=== PATIENT | male | born 1950 | race Caucasian/White ===

== ENCOUNTER → 2017-12-05 | Outpatient (CLI) | payer OTHER | LOC: RAD 12:54 | DX: F17.200 Nicotine dependence, unspecified, uncomplicated (principal); K57.32 Diverticulitis of large intestine without perforation or abscess without bleeding ==

== ENCOUNTER → 2019-04-04 | Outpatient (CLI) | payer OTHER | LOC: CAT 11:04 | DX: Z13.6 Encounter for screening for cardiovascular disorders (principal); E78.00 Pure hypercholesterolemia, unspecified; I25.10 Atherosclerotic heart disease of native coronary artery without angina pectoris ==

== ENCOUNTER → 2020-08-18 | Outpatient (CLI) | payer OTHER | LOC: SJCVCIMAG 11:24 | PROVIDERS: ATTEND Internal Medicine | DX: I08.0 Rheumatic disorders of both mitral and aortic valves (principal); I31.3 Pericardial effusion (noninflammatory); R07.89 Other chest pain; R06.00 Dyspnea, unspecified; R93.1 Abnormal findings on diagnostic imaging of heart and coronary circulation; I10 Essential (primary) hypertension; E78.00 Pure hypercholesterolemia, unspecified; F17.210 Nicotine dependence, cigarettes, uncomplicated; Z98.890 Other specified postprocedural states; Z79.82 Long term (current) use of aspirin; Z79.899 Other long term (current) drug therapy; Z82.49 Family history of ischemic heart disease and other diseases of the circulatory system ==

== ENCOUNTER → 2020-08-25 | Outpatient (CLI) | payer OTHER | LOC: LAB 14:05 | PROVIDERS: ATTEND Internal Medicine | DX: Z01.812 Encounter for preprocedural laboratory examination (principal); Z20.822 Contact with and (suspected) exposure to COVID-19 ==

== ENCOUNTER → 2020-08-30 | Outpatient (CLI) | payer OTHER ==
[~2020-08-30] VITALS: Ht 177.8 cm; Wt 64.5 kg
[~2020-08-30] MED LIST: ASA81BEC PO; CENTRUM SILVER1 EAC4 PO; FLONASE 0.05%50 MCG NARES; FOLITAB 500 CA1 EAC1 PO; LIPITOR40 MG PO; LISINOPRIL20 MG PO; MAGNESIUM30 MG PO
[2020-08-30 07:08] VITALS: BP 143/78
--- NOTE | 2020-08-30 09:04 | CATHLAB ---
[facility] [place] [address] INVASIVE PROCEDURE REPORT Name: MILLICENT LOVE Room #: BRIANNA Mccarthy.#: [id number] Admission: 08/30/20 Attend Phys: Chris Juarez MD, Discharge: Date of : 54 Report #: [id number] THIS REPORT FOR: cc: Ron Molina MD, Rene P. MD Lundgren, Craig H. MD [facility] ~ APPROVED REPORT Study performed: 08/30/2020 07:21:51 Patient Details Patient Status: Out-Patient Room #: The patient is a 70 year-old male Event Personnel Chris Juarez Hogshead Filler, Miriam Nails RN RN, Eddi Capps RN RN, Shelley Preston RT(R)() Adama Holguin Sherra RTR Monitor Procedures Performed Art Access - R femoral artery* Left Heart Cath w/or w/o Coronaries [id number] [facility] [address] Initial Mod Sed Same Phys/QHP Gr5y [id number] 95543 Mod Sed Same Phys/QHP Ea [id number] Hemostasis with Manual pressure Hemostasis w/ Mynx Indication Chest pain Procedure Narrative The patient was brought electively to the Cardiac Catheterization Laboratory and was prepped and draped in a sterile manner. The Right Groin^ was infiltrated with 1% Lidocaine Endobronchial subcutaneous anesthesia. A PINNACLE 6FR Sheath #[id number] sheath was inserted into the RFA^. Coronary angiography was performed using coronary diagnostic catheters. The right coronary system was accessed and visualized with a JR4 catheter. The left coronary system was accessed and visualized with a JL4 catheter. The left ventricle was accessed and visualized with a PIGTAIL catheter. Left ventriculogram was performed in 30 degree projection. Closure device was deployed with a 6 Fr MYNXGRIP 6/7F #[id number]. The patient tolerated the procedure well and there were no complications associated with the procedure. There was no hematoma. 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 The left ventricular ejection fraction is estimated to be 60-65%. Left ventricular wall motion abnormalities are not present. There is no mitral insufficiency. Hemodynamics The aortic pressure is 169/60 mmHg with a mean of 109 mmHg. The left ventricular pressure is 157/1 mmHg with a mean of mmHg. The left ventricular end diastolic pressure is 15 mmHg. Conclusion 1. Normal global and regional left ventricular systolic function. EF 65% 2. Normal left main 3. 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 Minimal circumflex plaquing 4. Dominant right coronary with sequential 40-50% mid LAD stenoses Recommendations [facility] [address] [place] [address] INVASIVE PROCEDURE REPORT Name: MILLICENT LOVE Room #: REG [facility]#: [id number] Admission: 08/30/20 Attend Phys: Chris Juarez, Discharge: Date of : 54 Report #: [id number] Smoking Cessation Aggressive Medical Therapy <ELECTRONICALLY SIGNED> By: Chris Juarez MD, [facility] 08/30/20 0903 2 2 Chris Juarez MD, FACC /INF
== END | disposition home or self-care (01) ==
LOC: CATH 06:29
PROVIDERS: ATTEND Internal Medicine
DX: R07.9 Chest pain, unspecified (principal); I25.10 Atherosclerotic heart disease of native coronary artery without angina pectoris; I25.41 Coronary artery aneurysm; I10 Essential (primary) hypertension; E78.00 Pure hypercholesterolemia, unspecified; J44.9 Chronic obstructive pulmonary disease, unspecified; F17.210 Nicotine dependence, cigarettes, uncomplicated; Z98.890 Other specified postprocedural states; Z79.899 Other long term (current) drug therapy; Z85.828 Personal history of other malignant neoplasm of skin; Z82.49 Family history of ischemic heart disease and other diseases of the circulatory system

== ENCOUNTER → 2021-02-01 | Outpatient (CLI) | payer OTHER | LOC: SJCVC 10:08 | PROVIDERS: ATTEND Internal Medicine | DX: R94.31 Abnormal electrocardiogram [ECG] [EKG] (principal); I25.10 Atherosclerotic heart disease of native coronary artery without angina pectoris; R93.1 Abnormal findings on diagnostic imaging of heart and coronary circulation; I10 Essential (primary) hypertension; E78.00 Pure hypercholesterolemia, unspecified; F17.210 Nicotine dependence, cigarettes, uncomplicated; Z79.82 Long term (current) use of aspirin; Z79.899 Other long term (current) drug therapy; Z72.89 Other problems related to lifestyle ==

== ENCOUNTER → 2021-04-20 | Outpatient (CLI) | payer OTHER | LOC: CAT 09:24 | PROVIDERS: ATTEND Family Medicine | DX: Z12.2 Encounter for screening for malignant neoplasm of respiratory organs (principal); R91.1 Solitary pulmonary nodule; F17.210 Nicotine dependence, cigarettes, uncomplicated ==

== ENCOUNTER → 2021-04-21 | Outpatient (CLI) | payer OTHER | LOC: CAT 12:36 | PROVIDERS: ATTEND Family Medicine | DX: R91.1 Solitary pulmonary nodule (principal); N28.1 Cyst of kidney, acquired; R06.02 Shortness of breath; N28.89 Other specified disorders of kidney and ureter ==